=== PATIENT | female | born 1995 | race Caucasian/White ===

== ENCOUNTER 2017-06-19 16:21 | Emergency (ER) | payer OTHER ==
--- NOTE | 2017-06-19 16:44 | PDOC ---
Rapid Medical Evaluation Time Seen by Provider: 06/19/17 16:41 Medical Evaluation: 06/19/17 16:41 I have performed a brief in-person evaluation of this patient. The patient presents with a chief complaint of: Pain and redness to the dorsum of the right foot. 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 I have ordered the following: Urine preg, xray right foot. The patient will proceed to the ED for further evaluation.
[2017-06-19 16:49] VITALS: BP 132/57; PULSE 73; TEMP 98; BMI 24.0
--- NOTE | 2017-06-19 17:53 | PDOC ---
History of Present Illness - General Chief Complaint: Pain Stated Complaint: FOOT PAIN Time Seen by Provider: 06/19/17 16:41 History Source: Patient Exam Limitations: No Limitations - History of Present Illness Initial Comments: 06/19/17 17:55 This 21 yr old girl ambulates into ER with c/o right foot dorsal aspect pain. She said it started after work 5 days ago after wearing a pair of boots however the pain and discoloration has not gone away. She also did not stop wearing the boots so she says. She is in now with sneakers. NKA NO meds Occurred: reports: last week Past History - Past Medical History Allergies/Adverse Reactions: Allergies Allergy/AdvReac Type Severity Reaction Status Date / Time No Known Allergies Allergy Verified 06/19/17 16:46 Home Medications: Ambulatory Orders NK [No Known Home Medication] 06/19/17 - Suicide/Smoking/Psychosocial Hx Smoking History: Never smoked Hx Alcohol Use: No Drug/Substance Use Hx: No Review of Systems - Review of Systems Able to Perform ROS?: Yes Musculoskeletal: Yes: See HPI, Other (right dorsal foot pain with some mild redness). No: Joint Pain, Joint Swelling, Muscle Weakness *Physical Exam - Vital Signs Last Vital Signs Temp Pulse Resp BP Pulse Ox 98 F 73 20 132/57 99 06/19/17 16:46 06/19/17 16:46 06/19/17 16:46 06/19/17 16:46 06/19/17 16:46 - Physical Exam General Appearance: Yes: Appropriately Dressed HEENT: positive: Normal Voice Respiratory/Chest: positive: Lungs Clear Cardiovascular: positive: Regular Rate Gastrointestinal/Abdominal: positive: Soft Extremity: positive: Normal Capillary Refill Integumentary: positive: Dry, Warm, Bruising (right foot bruising noted ot he top of foot without skin breakdown from a pair of boots). negative: Swelling, Ecchymosis Neurologic: positive: Fully Oriented ED Treatment Course - ADDITIONAL ORDERS Additional order review: Laboratory Results 06/19/17 16:56 Urine HCG, Qual Negative Medical Decision Making - Medical Decision Making 06/19/17 18:00 Pt seen and examined. Foot xray negative Pt encouraged to RICE *DC/Admit/Observation/Transfer Diagnosis at time of Disposition: Superficial bruising of foot - Discharge Dispostion Disposition: HOME Condition at time of disposition: Good Admit: No - Referrals - Patient Instructions Printed Discharge Instructions: DI for Foot Pain Additional Instructions: Discharge Instructions 1. elevate foot 2. take tylenol or advil for pain 3. change your shoes - Post Discharge Activity Forms/Work/School Notes: Back to Work
== END 2017-06-19 18:01 | disposition home or self-care (01) ==
LOC: JERFT 16:21
DX: S90.31XA Contusion of right foot, initial encounter (principal)
CPT/HCPCS: 73630-TC-RT; 84703; 99281-25

== ENCOUNTER 2023-07-22 15:03 | Emergency (ER) | payer OTHER ==
[2023-07-22 15:17] VITALS: BP 131/62; PULSE 86; RESP 18; TEMP 98.7; BMI 23.3
== END 2023-07-22 16:20 | disposition home or self-care (01) ==
LOC: FER 15:03
DX: R05.9 Cough, unspecified (principal); M79.10 Myalgia, unspecified site; R50.9 Fever, unspecified; J06.9 Acute upper respiratory infection, unspecified; Z20.822 Contact with and (suspected) exposure to COVID-19
CPT/HCPCS: 0241U-QW; 71046-TC-FY; 99284-25